=== PATIENT | female | born 2000 | race Caucasian/White ===

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

== ENCOUNTER 2022-01-20 18:23 | Observation (INO) | payer BC ==
[2022-01-20] MEDS ORDERED: diphenhydrAMINE 50 MG/ML VIAL ONE (19:58)
[2022-01-20] MEDS ORDERED: Morphine 4 MG/ML VIAL ONE (22:12)
[2022-01-20 23:51] VITALS: BMI 30.4
[2022-01-20] MEDS ORDERED: diphenhydrAMINE 50 MG/ML VIAL IVP SCH (23:55)
[2022-01-21] MEDS ORDERED: Promethazine 25 MG TAB PO PRN (01:07)
[2022-01-21] MEDS ORDERED: traZODone HCl 50 MG TAB PO PRN (01:07)
[2022-01-21] MEDS ORDERED: Ondansetron ODT 4 MG TAB PO PRN (01:22)
[2022-01-21] MEDS ORDERED: Fluconazole 100 MG TAB PO SCH (01:30)
[2022-01-21] MEDS ORDERED: Morphine 2 MG/ML VIAL SLOW IVP SCH ×2 (01:30→11:15)
[2022-01-21] MEDS ORDERED: Fluticasone Propionate Nasal Spray 16 gm Bottle NASAL SCH (02:30)
[2022-01-21] MEDS ORDERED: Metoclopramide HCl 10 MG TAB PO SCH (02:30)
[2022-01-21] MEDS ORDERED: Cyclobenzaprine 10 MG TAB PO SCH (02:30)
[2022-01-21] MEDS ORDERED: Pregabalin 75 MG CAP PO SCH (02:30)
[2022-01-21] MEDS ORDERED: Tamsulosin HCl 0.4 MG CAP PO SCH (02:30)
[2022-01-21] MEDS ORDERED: Atenolol 50 MG TAB PO SCH (02:30)
[2022-01-21] MEDS ORDERED: Acetaminophen 500 MG TAB PO SCH ×2 (02:45→09:00)
[2022-01-21] MEDS: diphenhydrAMINE 50 MG/ML VIAL IVP SCH ×6 (04:05→23:51)
[2022-01-21] MEDS ORDERED: diphenhydrAMINE 50 MG/ML VIAL IVP SCH (06:00)
[2022-01-21] MEDS ORDERED: CROMOLYN SODIUM 20 MG/ML PO SCH (09:00)
[2022-01-21] MEDS: Acetaminophen 500 MG TAB PO SCH ×3 (10:00→21:16)
[2022-01-21] MEDS: Atenolol 50 MG TAB PO SCH ×3 (10:02→21:17)
[2022-01-21] MEDS: CeleCOXIB 100 MG CAP PO SCH (10:02)
[2022-01-21] MEDS: Famotidine 20 MG TAB PO SCH (10:03)
[2022-01-21] MEDS: Cyclobenzaprine 10 MG TAB PO SCH ×2 (10:04→21:14)
[2022-01-21] MEDS: Fludrocortisone Acetate 0.1 MG TAB PO SCH (10:04)
[2022-01-21] MEDS: Fluticasone Propionate Nasal Spray 16 gm Bottle NASAL SCH ×2 (10:05→21:12)
[2022-01-21] MEDS: Furosemide 40 MG TAB PO SCH (10:05)
[2022-01-21] MEDS: DULoxetine 60 MG CAP PO SCH (10:05)
[2022-01-21] MEDS: Montelukast Sodium 10 mg Tablet PO SCH (10:06)
[2022-01-21] MEDS: Metoclopramide HCl 10 MG TAB PO SCH ×4 (10:06→21:17)
[2022-01-21] MEDS: Potassium Chloride 20 MEQ TAB PO SCH (10:06)
[2022-01-21] MEDS: Loratadine 10 MG TAB PO SCH (10:06)
[2022-01-21] MEDS: Magnesium Oxide 250 MG TAB PO SCH (10:06)
[2022-01-21] MEDS: Tamsulosin HCl 0.4 MG CAP PO SCH ×2 (10:07→21:16)
[2022-01-21] MEDS: predniSONE 5 MG TAB PO SCH (10:07)
[2022-01-21] MEDS: Pyridostigmine Bromide IR 60 MG TAB PO SCH ×4 (10:07→21:15)
[2022-01-21] MEDS: Pregabalin 75 MG CAP PO SCH ×3 (10:13→21:13)
[2022-01-21] MEDS: Modafinil 100 MG TAB PO SCH (11:05)
[2022-01-21] MEDS: Morphine 2 MG/ML VIAL SLOW IVP SCH ×2 (16:34→17:32)
[2022-01-21] MEDS ORDERED: Lorazepam 1 MG TAB PO SCH (20:00)
[2022-01-21] MEDS ORDERED: Morphine 4 MG/ML VIAL SLOW IVP SCH (20:00)
[2022-01-21] MEDS ORDERED: MELATONIN 20MG PO SCH (21:00)
[2022-01-22] MEDS: diphenhydrAMINE 50 MG/ML VIAL IVP SCH ×2 (04:17→08:03)
[2022-01-22 08:53] VITALS: BP 138/86; TEMP 97.9
[2022-01-22] MEDS: Acetaminophen 500 MG TAB PO SCH (08:56)
[2022-01-22] MEDS: Magnesium Oxide 250 MG TAB PO SCH (08:56)
[2022-01-22] MEDS: Cyclobenzaprine 10 MG TAB PO SCH (08:57)
[2022-01-22] MEDS: Atenolol 50 MG TAB PO SCH (08:57)
[2022-01-22] MEDS: Fludrocortisone Acetate 0.1 MG TAB PO SCH (08:57)
[2022-01-22] MEDS: Fluticasone Propionate Nasal Spray 16 gm Bottle NASAL SCH (08:57)
[2022-01-22] MEDS: CeleCOXIB 100 MG CAP PO SCH (08:58)
[2022-01-22] MEDS: Furosemide 40 MG TAB PO SCH (08:59)
[2022-01-22] MEDS: Famotidine 20 MG TAB PO SCH (08:59)
[2022-01-22] MEDS: Pregabalin 75 MG CAP PO SCH (08:59)
[2022-01-22] MEDS: Metoclopramide HCl 10 MG TAB PO SCH (08:59)
[2022-01-22] MEDS: Potassium Chloride 20 MEQ TAB PO SCH (09:00)
[2022-01-22] MEDS: predniSONE 5 MG TAB PO SCH (09:00)
[2022-01-22] MEDS: Pyridostigmine Bromide IR 60 MG TAB PO SCH (09:00)
[2022-01-22] MEDS: Loratadine 10 MG TAB PO SCH (09:01)
[2022-01-22] MEDS: DULoxetine 60 MG CAP PO SCH (09:01)
[2022-01-22] MEDS: Montelukast Sodium 10 mg Tablet PO SCH (09:01)
[2022-01-22] MEDS: Tamsulosin HCl 0.4 MG CAP PO SCH (09:01)
[2022-01-22] MEDS: Modafinil 100 MG TAB PO SCH (09:31)
[2022-01-26] MEDS ORDERED: Fluconazole 100 MG TAB PO SCH (09:00)
== END 2022-01-22 09:37 | disposition home or self-care (01) ==
LOC: ERS 18:23 → MSONC 21:53
PROVIDERS: ADMIT Family Medicine; ATTEND Family Medicine
DX: T82.848A Pain due to vascular prosthetic devices, implants and grafts, initial encounter (principal); R55 Syncope and collapse; I77.4 Celiac artery compression syndrome; I49.8 Other specified cardiac arrhythmias; G90.1 Familial dysautonomia [Riley-Day]; I47.1 Supraventricular tachycardia; I10 Essential (primary) hypertension; N28.1 Cyst of kidney, acquired; E87.6 Hypokalemia; G90.9 Disorder of the autonomic nervous system, unspecified; G43.709 Chronic migraine without aura, not intractable, without status migrainosus; K59.09 Other constipation; K31.84 Gastroparesis; K63.89 Other specified diseases of intestine; Q79.60 Ehlers-Danlos syndrome, unspecified; D47.02 Systemic mastocytosis; Z79.52 Long term (current) use of systemic steroids; Z79.899 Other long term (current) drug therapy; Z88.1 Allergy status to other antibiotic agents; Z88.8 Allergy status to other drugs, medicaments and biological substances; Z91.013 Allergy to seafood; Z91.048 Other nonmedicinal substance allergy status; Z20.822 Contact with and (suspected) exposure to COVID-19; Y81.3 Surgical instruments, materials and general- and plastic-surgery devices (including sutures) associated with adverse incidents
CPT/HCPCS: 36598; 71045; 71250; 96374; 96375; 96376; G0378; J1200; J2270; J7512; U0003; U0005

== ENCOUNTER 2022-01-26 10:39 | Day surgery (SDC) | payer BC | END 2022-01-26 14:24 | disposition home or self-care (01) | LOC: ONC/OP 10:39 | PROVIDERS: ATTEND Family Medicine | DX: Z45.2 Encounter for adjustment and management of vascular access device (principal); Z88.1 Allergy status to other antibiotic agents; Z88.8 Allergy status to other drugs, medicaments and biological substances; Z91.013 Allergy to seafood; Z91.048 Other nonmedicinal substance allergy status | CPT/HCPCS: 96523; 99211; G0463 ==

== ENCOUNTER 2022-02-01 14:56 | Day surgery (SDC) | payer BC | END 2022-02-01 18:13 | disposition home or self-care (01) | LOC: ONC/OP 14:56 | PROVIDERS: ATTEND Family Medicine | DX: Z45.2 Encounter for adjustment and management of vascular access device (principal); Z88.1 Allergy status to other antibiotic agents; Z88.8 Allergy status to other drugs, medicaments and biological substances; Z91.013 Allergy to seafood; Z91.048 Other nonmedicinal substance allergy status | CPT/HCPCS: 96523 ==

== ENCOUNTER 2022-02-01 15:46 | Inpatient (IN) | payer BC ==
[2022-02-01] MEDS ORDERED: diphenhydrAMINE 50 MG/ML VIAL ONE ×2 (15:53→17:07)
[2022-02-01] MEDS ORDERED: Famotidine/PF 20 mg/2ml Vial ONE (15:53)
[2022-02-01] MEDS ORDERED: EPINEPHrine 1 MG/ML VIAL ONE ×2 (15:53→19:00)
[2022-02-01] MEDS ORDERED: Dexamethasone 10 MG/ML VIAL ONE (15:54)
[2022-02-01] MEDS ORDERED: Ondansetron PF 4 MG/2 ML Vial ONE ×2 (15:56→15:57)
[2022-02-01] MEDS ORDERED: diphenhydrAMINE 12.5 MG/5 ML UDCUP ONE (17:06)
[2022-02-01] MEDS ORDERED: Acetaminophen 325 MG TAB PO PRN (18:20)
[2022-02-01] MEDS ORDERED: EPINEPHrine 1 MG/ML AMP IVP SCH (18:45)
[2022-02-01] MEDS ORDERED: EPINEPHrine 1 MG/10 ML Abboject SYRINGE ONE (18:56)
[2022-02-01 19:06] LABS: Hemoglobin 12.8 g/dL (12.0-16.0); Mean Corpuscular HGB CONC 35.8 g/dL (32.0-36.0); Mean Corpuscular Hemoglobin 32.3 pg (25.0-35.0); Mean Corpuscular Volume 90.2 fL (78.0-98.0); Mean Platelet Volume 8.1 fL (7.4-10.4); Platelet Count 205 thou/uL (130-400); RBC Distribution Width 12.4 % (11.5-14.5); Red Blood Cell (RBC) Count 3.95 mill/uL (4.00-5.20); White Blood Cell (WBC) Count 8.3 thou/uL (4.8-10.8)
[2022-02-01 19:22] LABS: Lymphocytes 8 % (28-48); MDiff Complete? YES; Monocytes 2 % (0-4); Neutrophil 87 % (31-61); Platelet Morphology Comment Appears Adequate; RBC Morphology Normal; Reactive Lymphocytes 3 % (0-10)
[2022-02-01 19:28] LABS: ALT (SGPT) 34 U/L (8-55); AST (SGOT) 18 U/L (5-30); Albumin 4.6 g/dL (3.5-5.0); Alkaline Phosphatase 64 U/L (40-100); Anion Gap 14 mmol/L (10-20); BUN (Urea Nitrogen) 12 mg/dL (8.4-21.0); Bilirubin, Total 0.4 mg/dL (0.2-1.2); Calc. Creatinine Clearance 0 mL/min (70-130); Calcium 9.6 mg/dL (7.8-10.44); Carbon Dioxide 25 mmol/L (22-29); Chloride 103 mmol/L (98-107); Estimated GFR 130; Globulin 2.5 g/dL (2.4-3.5); Glucose 122 mg/dL (70-105); Potassium 4.2 mmol/L (3.5-5.1); Protein, Total 7.1 g/dL (6.0-8.3); Sodium 138 mmol/L (136-145)
[2022-02-01] MEDS ORDERED: Promethazine 25 MG TAB PO PRN (19:39)
[2022-02-01] MEDS ORDERED: diphenhydrAMINE 50 MG/ML VIAL IVP SCH ×3 (19:45→21:00)
[2022-02-01 20:12] VITALS: BMI 30.2
[2022-02-01] MEDS ORDERED: Prevnar 13-Val Conj/PF 0.5 ML SYRINGE IM ONE (20:30)
[2022-02-01] MEDS ORDERED: Ondansetron ODT 4 MG TAB PO PRN (20:36)
[2022-02-01] MEDS ORDERED: Morphine 4 MG/ML VIAL SLOW IVP SCH (20:45)
[2022-02-01] MEDS ORDERED: Metoclopramide HCl 10 MG TAB PO SCH (21:00)
[2022-02-01] MEDS ORDERED: CROMOLYN SODIUM 20 MG/ML PO SCH (21:00)
[2022-02-01] MEDS: Lactated Ringer's 1,000 ML IV SCH (21:13)
[2022-02-01] MEDS: Tamsulosin HCl 0.4 MG CAP PO SCH (21:18)
[2022-02-01] MEDS: Loratadine 10 MG TAB PO SCH (21:18)
[2022-02-01] MEDS: Metoclopramide HCl 10 MG TAB PO SCH (21:19)
[2022-02-01] MEDS: Acetaminophen 500 MG TAB PO SCH (21:19)
[2022-02-01] MEDS: Famotidine 20 MG TAB PO SCH (21:20)
[2022-02-01] MEDS: Pregabalin 75 MG CAP PO SCH (21:21)
[2022-02-01] MEDS: Cyclobenzaprine 10 MG TAB PO SCH (21:30)
[2022-02-01] MEDS: Fluticasone Propionate Nasal Spray 16 gm Bottle NASAL SCH (21:40)
[2022-02-01] MEDS: Pyridostigmine Bromide IR 60 MG TAB PO SCH (21:41)
[2022-02-01] MEDS: Atenolol 50 MG TAB PO SCH (21:46)
[2022-02-01] MEDS: traZODone HCl 50 MG TAB PO PRN (22:42)
[2022-02-01] MEDS: Melatonin 3 MG TAB PO SCH (22:42)
[2022-02-02] MEDS: diphenhydrAMINE 50 MG/ML VIAL IVP SCH ×6 (01:00→19:04)
[2022-02-02] MEDS ORDERED: Morphine 4 MG/ML VIAL SLOW IVP SCH (01:30)
[2022-02-02] MEDS: Lactated Ringer's 1,000 ML IV SCH (05:02)
[2022-02-02 05:14] LABS: #Lymphocytes 1.2 thou/uL (1.20-3.40); #Monocytes 0.5 thou/uL (0.11-0.59); #Neutrophils 10.1 thou/uL (1.40-6.50); %Basophils 0.2 % (0.0-1.0); %Eosinophils 0.1 % (0.0-10.0); %Lymphocytes 10.3 % (28.0-48.0); %Monocytes 4.2 % (0.0-4.0); %Neutrophils 85.2 % (31.0-61.0); Hemoglobin 12.1 g/dL (12.0-16.0); Mean Corpuscular Hemoglobin 31.1 pg (25.0-35.0); Mean Corpuscular Volume 91.5 fL (78.0-98.0); Mean Platelet Volume 7.7 fL (7.4-10.4); Platelet Count 217 thou/uL (130-400); RBC Distribution Width 12.5 % (11.5-14.5); White Blood Cell (WBC) Count 11.8 thou/uL (4.8-10.8)
[2022-02-02 05:54] LABS: ALT (SGPT) 27 U/L (8-55); AST (SGOT) 14 U/L (5-30); Albumin 4.2 g/dL (3.5-5.0); Alkaline Phosphatase 57 U/L (40-100); Anion Gap 13 mmol/L (10-20); BUN (Urea Nitrogen) 10 mg/dL (8.4-21.0); Bilirubin, Total 0.4 mg/dL (0.2-1.2); Calc. Creatinine Clearance 189 mL/min (70-130); Calcium 9.1 mg/dL (7.8-10.44); Carbon Dioxide 26 mmol/L (22-29); Chloride 102 mmol/L (98-107); Estimated GFR 130; Globulin 2.4 g/dL (2.4-3.5); Glucose 113 mg/dL (70-105); Protein, Total 6.6 g/dL (6.0-8.3); Sodium 137 mmol/L (136-145)
[2022-02-02] MEDS: Fludrocortisone Acetate 0.1 MG TAB PO SCH (08:44)
[2022-02-02] MEDS: CeleCOXIB 100 MG CAP PO SCH (08:44)
[2022-02-02] MEDS: Pyridostigmine Bromide IR 60 MG TAB PO SCH ×4 (08:44→21:05)
[2022-02-02] MEDS: Magnesium Oxide 250 MG TAB PO SCH (08:45)
[2022-02-02] MEDS: Pregabalin 75 MG CAP PO SCH ×3 (08:45→21:03)
[2022-02-02] MEDS: Atenolol 50 MG TAB PO SCH ×2 (08:45→21:04)
[2022-02-02] MEDS: Acetaminophen 500 MG TAB PO SCH ×3 (08:45→21:03)
[2022-02-02] MEDS: Tamsulosin HCl 0.4 MG CAP PO SCH ×2 (08:45→21:03)
[2022-02-02] MEDS: Famotidine 20 MG TAB PO SCH ×2 (08:45→21:05)
[2022-02-02] MEDS: Metoclopramide HCl 10 MG TAB PO SCH ×4 (08:45→19:04)
[2022-02-02] MEDS: Potassium Chloride 20 MEQ TAB PO SCH (08:46)
[2022-02-02] MEDS: Cyclobenzaprine 10 MG TAB PO SCH ×2 (08:46→21:05)
[2022-02-02] MEDS: DULoxetine 60 MG CAP PO SCH (08:46)
[2022-02-02] MEDS: Montelukast Sodium 10 mg Tablet PO SCH (08:46)
[2022-02-02] MEDS: Fluticasone Propionate Nasal Spray 16 gm Bottle NASAL SCH ×2 (08:47→21:05)
[2022-02-02] MEDS: Furosemide 40 MG TAB PO SCH (08:47)
[2022-02-02] MEDS: Loratadine 10 MG TAB PO SCH ×2 (08:47→21:03)
[2022-02-02] MEDS: Modafinil 100 MG TAB PO SCH (08:57)
[2022-02-02] MEDS ORDERED: Loratadine 10 MG TAB PO SCH (09:00)
[2022-02-02] MEDS ORDERED: Fluconazole 100 MG TAB PO SCH (09:00)
[2022-02-02] MEDS ORDERED: Morphine 2 MG/ML VIAL SLOW IVP SCH ×2 (09:45→23:00)
[2022-02-02] MEDS ORDERED: EPINEPHrine 1 MG/10 ML Abboject SYRINGE ONE ×2 (16:06→16:07)
[2022-02-02] MEDS ORDERED: EPINEPHrine 1 MG/ML AMP ONE (16:07)
[2022-02-02] MEDS ORDERED: Midazolam HCl 2 mg/2 ml Vial SLOW IVP SCH (16:30)
[2022-02-02] MEDS ORDERED: EPINEPHrine 1 MG/10 ML Abboject SYRINGE IVP SCH (17:15)
[2022-02-02] MEDS ORDERED: Ketorolac Tromethamine 30 MG/ML VIAL IVP SCH (19:30)
[2022-02-02] MEDS ORDERED: Sodium Chloride 0.9% 1,000 ML IV SCH (19:30)
[2022-02-02] MEDS ORDERED: Metoclopramide HCl 10 MG/2 ML VIAL IVP SCH (19:30)
[2022-02-02] MEDS ORDERED: diphenhydrAMINE 50 MG/ML VIAL IVP SCH ×2 (19:30→21:00)
[2022-02-02 21:06] VITALS: BP 136/76
[2022-02-02] MEDS: Melatonin 3 MG TAB PO SCH (22:30)
[2022-02-02] MEDS: traZODone HCl 50 MG TAB PO PRN (22:31)
[2022-02-03] MEDS: diphenhydrAMINE 50 MG/ML VIAL IVP SCH ×4 (01:08→12:19)
[2022-02-03 06:13] LABS: #Eosinphils 0.1 thou/uL (0.0-0.7); #Lymphocytes 1.7 thou/uL (1.20-3.40); #Monocytes 0.3 thou/uL (0.11-0.59); #Neutrophils 4.5 thou/uL (1.40-6.50); %Basophils 0.3 % (0.0-1.0); %Eosinophils 0.8 % (0.0-10.0); %Lymphocytes 25.6 % (28.0-48.0); %Monocytes 4.8 % (0.0-4.0); %Neutrophils 68.5 % (31.0-61.0); Hemoglobin 11.5 g/dL (12.0-16.0); Mean Corpuscular HGB CONC 34.4 g/dL (32.0-36.0); Mean Corpuscular Volume 93.2 fL (78.0-98.0); Mean Platelet Volume 7.8 fL (7.4-10.4); Platelet Count 80 thou/uL (130-400); Platelet Morphology Comment Appears Decreased; RBC Distribution Width 12.5 % (11.5-14.5); RBC Morphology Normal; Red Blood Cell (RBC) Count 3.59 mill/uL (4.00-5.20); White Blood Cell (WBC) Count 6.6 thou/uL (4.8-10.8)
[2022-02-03 06:17] LABS: ALT (SGPT) 41 U/L (8-55); AST (SGOT) 22 U/L (5-30); Albumin 3.8 g/dL (3.5-5.0); Alkaline Phosphatase 57 U/L (40-100); Anion Gap 14 mmol/L (10-20); BUN (Urea Nitrogen) 13 mg/dL (8.4-21.0); Bilirubin, Total 0.2 mg/dL (0.2-1.2); Calc. Creatinine Clearance 202 mL/min (70-130); Calcium 8.6 mg/dL (7.8-10.44); Carbon Dioxide 25 mmol/L (22-29); Chloride 106 mmol/L (98-107); Estimated GFR 131; Globulin 2.2 g/dL (2.4-3.5); Glucose 96 mg/dL (70-105); Sodium 141 mmol/L (136-145)
[2022-02-03] MEDS ORDERED: Morphine 2 MG/ML VIAL SLOW IVP PRN (08:52)
[2022-02-03] MEDS: Modafinil 100 MG TAB PO SCH (09:24)
[2022-02-03] MEDS: CeleCOXIB 100 MG CAP PO SCH (09:25)
[2022-02-03] MEDS: Furosemide 40 MG TAB PO SCH (09:25)
[2022-02-03] MEDS: Pyridostigmine Bromide IR 60 MG TAB PO SCH ×2 (09:25→12:19)
[2022-02-03] MEDS: Acetaminophen 500 MG TAB PO SCH (09:25)
[2022-02-03] MEDS: Magnesium Oxide 250 MG TAB PO SCH (09:25)
[2022-02-03] MEDS: Loratadine 10 MG TAB PO SCH (09:26)
[2022-02-03] MEDS: Cyclobenzaprine 10 MG TAB PO SCH (09:26)
[2022-02-03] MEDS: Atenolol 50 MG TAB PO SCH (09:26)
[2022-02-03] MEDS: Pregabalin 75 MG CAP PO SCH (09:26)
[2022-02-03] MEDS: Fludrocortisone Acetate 0.1 MG TAB PO SCH (09:26)
[2022-02-03] MEDS: DULoxetine 60 MG CAP PO SCH (09:26)
[2022-02-03] MEDS: Metoclopramide HCl 10 MG TAB PO SCH ×2 (09:26→12:19)
[2022-02-03] MEDS: Montelukast Sodium 10 mg Tablet PO SCH (09:27)
[2022-02-03] MEDS: Potassium Chloride 20 MEQ TAB PO SCH (09:27)
[2022-02-03] MEDS: Fluticasone Propionate Nasal Spray 16 gm Bottle NASAL SCH (09:27)
[2022-02-03] MEDS: Tamsulosin HCl 0.4 MG CAP PO SCH (09:27)
[2022-02-03] MEDS: Famotidine 20 MG TAB PO SCH (09:27)
[2022-02-03 11:27] VITALS: TEMP 96.5
[2022-02-05 01:12] LABS: Tryptase 2.6 ug/L (2.2-13.2)
== END 2022-02-03 12:47 | disposition home or self-care (01) | DRG 916 ==
LOC: ERS 15:46 → ERHOLD 16:49 → IMCU/EMU 20:00
PROVIDERS: ADMIT Student in an Organized Health Care Education/Training Program; ATTEND Student in an Organized Health Care Education/Training Program
DX: T88.6XXA Anaphylactic reaction due to adverse effect of correct drug or medicament properly administered, initial encounter (principal); I47.1 Supraventricular tachycardia; Q79.60 Ehlers-Danlos syndrome, unspecified; Z20.822 Contact with and (suspected) exposure to COVID-19; F41.9 Anxiety disorder, unspecified; I10 Essential (primary) hypertension; G90.1 Familial dysautonomia [Riley-Day]; D89.40 Mast cell activation, unspecified; G43.909 Migraine, unspecified, not intractable, without status migrainosus; E87.6 Hypokalemia; F90.9 Attention-deficit hyperactivity disorder, unspecified type; K31.84 Gastroparesis; F41.0 Panic disorder [episodic paroxysmal anxiety]; L25.1 Unspecified contact dermatitis due to drugs in contact with skin; K59.09 Other constipation; Z86.718 Personal history of other venous thrombosis and embolism; Z88.1 Allergy status to other antibiotic agents; Z91.048 Other nonmedicinal substance allergy status; Z91.013 Allergy to seafood; Z79.899 Other long term (current) drug therapy; Z79.52 Long term (current) use of systemic steroids; Z88.8 Allergy status to other drugs, medicaments and biological substances
CPT/HCPCS: 80053; 83519; 85025; 96361; 96374; 96375; 96376; 96523; J0171; J1100; J1200; J1885; J2250; J2270; J2405; J2765; J7050; J7120; Q0163; S0028; U0003; U0005

== ENCOUNTER 2022-02-04 21:36 | Inpatient (IN) | payer BC ==
[2022-02-04] MEDS ORDERED: EPINEPHrine 1 MG/ML VIAL ONE (21:51)
[2022-02-04] MEDS ORDERED: diphenhydrAMINE 50 MG/ML VIAL ONE (21:53)
[2022-02-04] MEDS ORDERED: Morphine 4 MG/ML VIAL ONE (22:05)
[2022-02-04] MEDS ORDERED: Lorazepam 2 MG/ML VIAL ONE (22:07)
[2022-02-04] MEDS ORDERED: Racepinephrine 2.25% 0.5 ML NEB ONE (22:12)
[2022-02-04 22:23] LABS: #Monocytes 0.2 thou/uL (0.11-0.59); #Neutrophils 12.2 thou/uL (1.40-6.50); %Basophils 0.3 % (0.0-1.0); %Eosinophils 0.2 % (0.0-10.0); %Lymphocytes 7.3 % (28.0-48.0); %Monocytes 1.4 % (0.0-4.0); %Neutrophils 90.8 % (31.0-61.0); Mean Corpuscular HGB CONC 35.8 g/dL (32.0-36.0); Mean Corpuscular Hemoglobin 32.7 pg (25.0-35.0); Mean Corpuscular Volume 91.2 fL (78.0-98.0); Platelet Count 196 thou/uL (130-400); RBC Distribution Width 12.3 % (11.5-14.5); Red Blood Cell (RBC) Count 3.96 mill/uL (4.00-5.20); White Blood Cell (WBC) Count 13.4 thou/uL (4.8-10.8)
[2022-02-04 22:50] LABS: ALT (SGPT) 59 U/L (8-55); AST (SGOT) 29 U/L (5-30); Albumin 4.8 g/dL (3.5-5.0); Alkaline Phosphatase 69 U/L (40-100); Anion Gap 19 mmol/L (10-20); BUN (Urea Nitrogen) 15 mg/dL (8.4-21.0); Bilirubin, Total 0.3 mg/dL (0.2-1.2); Calc. Creatinine Clearance 0 mL/min (70-130); Calcium 10.3 mg/dL (7.8-10.44); Carbon Dioxide 23 mmol/L (22-29); Chloride 99 mmol/L (98-107); Estimated GFR 116; Globulin 2.9 g/dL (2.4-3.5); Glucose 136 mg/dL (70-105); Potassium 3.1 mmol/L (3.5-5.1); Protein, Total 7.7 g/dL (6.0-8.3); Sodium 138 mmol/L (136-145)
[2022-02-05] MEDS ORDERED: Potassium Chloride 20 MEQ TAB ONE (00:05)
[2022-02-05] MEDS ORDERED: Acetaminophen 500 MG TAB ONE (00:05)
[2022-02-05 00:30] LABS: Magnesium 1.6 mg/dL (1.7-2.2)
[2022-02-05] MEDS ORDERED: AUTO INJCT IM PRN (01:15)
[2022-02-05] MEDS ORDERED: Promethazine 25 MG TAB PO PRN (01:15)
[2022-02-05] MEDS ORDERED: EPINEPHRINE 0.3 MG/0.3 ML IM PRN (01:15)
[2022-02-05] MEDS ORDERED: traZODone HCl 50 MG TAB PO PRN (01:15)
[2022-02-05 01:18] VITALS: BMI 30.9
[2022-02-05] MEDS ORDERED: Diazepam 2 MG TAB PO PRN (01:30)
[2022-02-05] MEDS: diphenhydrAMINE 50 MG/ML VIAL IVP SCH ×4 (01:38→13:03)
[2022-02-05] MEDS ORDERED: Ondansetron ODT 4 MG TAB PO PRN (01:42)
[2022-02-05] MEDS: Morphine 4 MG/ML VIAL SLOW IVP PRN ×3 (01:46→09:24)
[2022-02-05] MEDS ORDERED: Pregabalin 75 MG CAP PO SCH ×4 (02:12→15:00)
[2022-02-05] MEDS ORDERED: Melatonin 3 MG TAB PO SCH ×4 (02:12→21:00)
[2022-02-05] MEDS ORDERED: Cyclobenzaprine 10 MG TAB PO SCH ×2 (02:15→09:00)
[2022-02-05] MEDS ORDERED: Famotidine 20 MG TAB PO SCH ×2 (02:46→09:00)
[2022-02-05] MEDS ORDERED: Fluticasone Propionate Nasal Spray 16 gm Bottle NASAL SCH ×2 (02:46→09:00)
[2022-02-05] MEDS ORDERED: Fludrocortisone Acetate 0.1 MG TAB PO SCH ×3 (02:46→09:00)
[2022-02-05] MEDS ORDERED: Tamsulosin HCl 0.4 MG CAP PO SCH ×3 (03:15→21:00)
[2022-02-05] MEDS ORDERED: Atenolol 50 MG TAB PO SCH ×3 (03:15→09:00)
[2022-02-05] MEDS ORDERED: Magnesium Oxide 250 MG TAB PO SCH ×2 (03:15→09:00)
[2022-02-05] MEDS ORDERED: Loratadine 10 MG TAB PO SCH ×3 (03:15→21:00)
[2022-02-05] MEDS ORDERED: DULoxetine 60 MG CAP PO SCH ×2 (03:15→09:00)
[2022-02-05] MEDS ORDERED: Montelukast Sodium 10 mg Tablet PO SCH ×2 (03:15→09:00)
[2022-02-05 03:26] VITALS: BP 155/104
[2022-02-05 04:36] LABS: Anion Gap 15 mmol/L (10-20); BUN (Urea Nitrogen) 10 mg/dL (8.4-21.0); Calc. Creatinine Clearance 188 mL/min (70-130); Calcium 9.9 mg/dL (7.8-10.44); Carbon Dioxide 23 mmol/L (22-29); Chloride 101 mmol/L (98-107); Estimated GFR 129; Glucose 125 mg/dL (70-105); Potassium 4.1 mmol/L (3.5-5.1); Sodium 135 mmol/L (136-145)
[2022-02-05 07:20] VITALS: TEMP 97.2
[2022-02-05] MEDS ORDERED: predniSONE 20 MG TAB PO SCH (08:00)
[2022-02-05] MEDS: Metoclopramide HCl 10 MG TAB PO SCH ×2 (08:40→13:33)
[2022-02-05] MEDS ORDERED: Acetaminophen 500 MG TAB PO SCH (09:00)
[2022-02-05] MEDS ORDERED: Furosemide 40 MG TAB PO SCH (09:00)
[2022-02-05] MEDS ORDERED: CROMOLYN SODIUM 20 MG/ML PO SCH (09:00)
[2022-02-05] MEDS ORDERED: Modafinil 100 MG TAB PO SCH (09:00)
[2022-02-05] MEDS ORDERED: Potassium Chloride 20 MEQ TAB PO SCH (09:00)
[2022-02-05] MEDS ORDERED: CeleCOXIB 100 MG CAP PO SCH (09:00)
[2022-02-05] MEDS ORDERED: Metoclopramide HCl 10 MG TAB PO SCH (09:00)
[2022-02-05] MEDS ORDERED: Pyridostigmine Bromide IR 60 MG TAB PO SCH ×2 (09:00→13:00)
[2022-02-05] MEDS ORDERED: Ondansetron PF 4 MG/2 ML Vial IVP SCH (11:15)
[2022-02-06] MEDS ORDERED: Fluticasone Propionate Nasal Spray 16 gm Bottle NASAL SCH (09:00)
[2022-02-06] MEDS ORDERED: Famotidine 20 MG TAB PO SCH (09:00)
[2022-02-06] MEDS ORDERED: Magnesium Oxide 250 MG TAB PO SCH (09:00)
[2022-02-06] MEDS ORDERED: DULoxetine 60 MG CAP PO SCH (09:00)
[2022-02-06] MEDS ORDERED: Fludrocortisone Acetate 0.1 MG TAB PO SCH (09:00)
[2022-02-06] MEDS ORDERED: Montelukast Sodium 10 mg Tablet PO SCH (09:00)
== END 2022-02-05 14:00 | disposition home or self-care (01) | DRG 880 ==
LOC: ERS 21:36 → IMCU/EMU 02-05 00:56 → OBSVTOIN 02-05 01:23
PROVIDERS: ADMIT Student in an Organized Health Care Education/Training Program; ATTEND Student in an Organized Health Care Education/Training Program
DX: F44.9 Dissociative and conversion disorder, unspecified (principal); I77.4 Celiac artery compression syndrome; Q79.60 Ehlers-Danlos syndrome, unspecified; Z20.822 Contact with and (suspected) exposure to COVID-19; D89.40 Mast cell activation, unspecified; G90.1 Familial dysautonomia [Riley-Day]; K31.84 Gastroparesis; F90.9 Attention-deficit hyperactivity disorder, unspecified type; G43.909 Migraine, unspecified, not intractable, without status migrainosus; E87.6 Hypokalemia; I10 Essential (primary) hypertension; F41.0 Panic disorder [episodic paroxysmal anxiety]; R00.0 Tachycardia, unspecified; T44.5X5A Adverse effect of predominantly beta-adrenoreceptor agonists, initial encounter; Z88.1 Allergy status to other antibiotic agents; Z88.8 Allergy status to other drugs, medicaments and biological substances; Z91.013 Allergy to seafood; Z91.048 Other nonmedicinal substance allergy status; Z79.899 Other long term (current) drug therapy; Z79.52 Long term (current) use of systemic steroids
CPT/HCPCS: 80048; 80053; 83735; 85025; 86160; 86161; J0171; J1200; J2060; J2270; J2405; J7512; Q0169; U0003; U0005

== ENCOUNTER 2022-02-08 15:12 | Day surgery (SDC) | payer BC | END 2022-02-08 16:41 | disposition home or self-care (01) | LOC: ONC/OP 15:12 | PROVIDERS: ATTEND Family Medicine | DX: Z45.2 Encounter for adjustment and management of vascular access device (principal); Z88.1 Allergy status to other antibiotic agents; Z88.8 Allergy status to other drugs, medicaments and biological substances; Z91.013 Allergy to seafood; Z91.048 Other nonmedicinal substance allergy status | CPT/HCPCS: 96523 ==

== ENCOUNTER 2025-01-22 12:45 | Emergency (ER) | payer BC ==
[2025-01-22] MEDS ORDERED: HYDROcodone/Acetaminophen 5/325 mg Tablet ONE (15:11)
== END 2025-01-22 15:33 | disposition home or self-care (01) ==
LOC: ERS 12:45
DX: S09.90XA Unspecified injury of head, initial encounter (principal); S40.022A Contusion of left upper arm, initial encounter; V89.2XXA Person injured in unspecified motor-vehicle accident, traffic, initial encounter
CPT/HCPCS: 70450; 72125; Q0162